=== PATIENT | female | born 1960 | race Caucasian/White ===

== ENCOUNTER 2016-11-10 13:05 | Emergency (ER) | payer OTHER ==
[~2016-11-10] VITALS: Ht 152.4 cm; Wt 82.9 kg
[~2016-11-10 13:05] MED LIST: AMLO-110 PO; IBUP200C11 PO; IRBE1TAB50 PO; PRT/20 PO
[2016-11-10 13:07] VITALS: PULSE 97; TEMP 36.7; O2SAT 94; Ht 152.4 cm; Wt 82.9 kg
[2016-11-10] MEDS ORDERED: LOSA100T65 PO (13:44)
[2016-11-10] MEDS ORDERED: HYDR25TA5 PO (13:44)
[2016-11-10] MEDS ORDERED: ZNTT/150 PO (13:52)
[2016-11-10] MEDS ORDERED: GLUCTAB18 PO (13:52)
[2016-11-10] MEDS ORDERED: ACET-1311 PO (13:52)
--- NOTE | 2016-11-10 14:23 | EMERGENCY ROOM VISIT NOTE ---
ED Visit Note First contact with patient: 13:22 CHIEF COMPLAINT: Scalp laceration HISTORY OF PRESENT ILLNESS: This 56-year-old female patient presents emergency department approximately 2 hours after striking the head with a hammer. The patient states she was working on her porch, and dropped a hammer from above onto the top of her head. There was no loss of consciousness, blurry vision, nausea, vomiting, or unusual behavior afterwards. The patient denies pain, and states it is 0/10. The patient denies neck pain. The bleeding has stopped, however the patient and her had difficulty getting the bleeding to stop. The patient did hold gauze and ice to help stop the bleeding. The patient's tetanus shot is up to date. REVIEW OF SYSTEMS: A 6 system review of systems was completed with positives and pertinent negatives listed in the HPI. ALLERGIES: Propoxyphene, iodine contrast MEDICATIONS: Amlodipine, losartan, hydrochlorothiazide, Osteo Bi-Flex, ranitidine PMH: Hypertension, GERD SOCIAL HISTORY: The patient lives locally with her family. She denies drug, tobacco use. The patient does report to occasional alcohol use. PHYSICAL EXAM: Vital Signs: Reviewed Nurse's notes, vital signs stable. GENERAL : 56-year-old female, in no acute distress, well-developed, well-nourished. NEURO: Patient was alert and oriented to person place and time. Sensory and motor functions grossly intact. No focal neurologic deficits. Normal sensation to light and sharp touch. EYES: PERRLA. EOMI. Fundoscopic exam without hemorrhages or papilledema. EARS: No hemotympanum. No norman sign or mastoid tenderness. SKIN: There is a 1.5 cm laceration on the dorsal, right aspect of the scalp whose edges gape apart with traction. There is minimal bleeding. The wound is clean and there are no deep structures present. NECK: Supple, cervical spine nontender to palpation. EMERGENCY DEPARTMENT COURSE: I examined the patient. Verbal consent was obtained to perform the procedure. Using sterile technique the wound was cleaned with Betadine. I did offer anesthesia with lidocaine, however, the patient refuses at this time. The area was sterilely draped. The wound was explored and there were no deep structures present. The laceration was repaired using 3 curtis with the wound edges being well approximated. The patient tolerated the procedure well. The bleeding stopped. The area was cleaned with sterile saline and dressed with bacitracin ointment. The patient was discharged home in good condition. DIFFERENTIAL DIAGNOSIS: Concussion, contusion, hematoma, skull fracture, intracranial hemorrhage, and others. DIAGNOSIS: Scalp laceration DISCHARGE INSTRUCTIONS: You have received 3 curtis on your scalp. These curtis are NOT dissolvable and WILL need to be removed by a health care provider in 10 days. You can return to the Emergency Department or contact your Primary Care Provider to have these curtis removed. Proper wound care is essential for adequate wound healing and infection prevention. You can shower and clean the wound with soap and water. Do scour over the wound, pat dry with a towel. Do not submerse the wound until the curtis have been removed. You can use an antibiotic ointment with a dressing over the wound for the next 3-4 days. After this time you may leave the wound dry and open to the air. If crust develops over the wound you can use a Q-tip to apply a 1:1 peroxide:water solution to clean the wound. Look for signs of infection of the wound including: increased pain, swelling, foul discharge, streaking, or increased temperature. If any of these are noticed you should return to the Emergency Department for further assessment and treatment. As with any laceration you may have received nerve damage to the surrounding tissues. This damage may or may not be permanent. For pain control, you can use the following fifk-uvp-kajllfg medicines (if >12 yo): - Regular strength (325mg/tab) Tylenol (acetaminophen) 2 tabs every 4-6 hours as needed. Do not exceed 9 tablets in a 24 hour period. Avoid taking more than 3 grams (3000 mg) of Tylenol per day. This includes any other sources of acetaminophen you may take on a regular basis. - Regular strength (200 mg/tab) Advil (ibuprofen) 1-2 tabs every 4-6 hours as needed. Do not exceed a dose of 3200 mg per day. Return to the emergency department if your symptoms worsen despite treatment course outlined above or if you experience worsening headache, dizziness, blurry vision, lightheadedness, confusion, altered mental status, loss of consciousness, or other concerning head injury symptoms. Please follow-up with your primary care provider in 2-3 days for recheck of today's condition. Current/Historical Medications Scheduled Acetaminophen (Tylenol), 325 MG PO DAILY Amlodipine (Norvasc), 5 MG PO QAM Glucosamine-Chondroitin (Osteo Bi-Flex Regular Str), 1 TAB PO DAILY Hydrochlorothiazide (Hydrochlorothiazide), 25 MG PO DAILY Losartan Potassium (Cozaar), 100 MG PO DAILY Ranitidine (Zantac), 150 MG PO DAILY Allergies Coded Allergies: Propoxyphene (Verified Allergy, Mild, 08/28/15) Iodinated Diagnostic Agents (Verified Allergy, Unknown, HIVES, 08/28/15) Vital Signs Date Time Temp Pulse Resp B/P (MAP) Pulse Ox O2 Delivery O2 Flow Rate FiO2 11/10/16 14:29 129/94 11/10/16 13:07 36.7 97 20 146/98 94 Room Air Departure Information Impression Primary Impression: Laceration of scalp Dispostion Home / Self-Care Condition GOOD Referrals No Doctor, Assigned (PCP) Patient Instructions ED Laceration Scalp Stitch Or Stap, Luxera Additional Instructions You have received 3 curtis on your scalp. These curtis are NOT dissolvable and WILL need to be removed by a health care provider in 10 days. You can return to the Emergency Department or contact your Primary Care Provider to have these curtis removed. Proper wound care is essential for adequate wound healing and infection prevention. You can shower and clean the wound with soap and water. Do scour over the wound, pat dry with a towel. Do not submerse the wound until the curtis have been removed. You can use an antibiotic ointment with a dressing over the wound for the next 3-4 days. After this time you may leave the wound dry and open to the air. If crust develops over the wound you can use a Q-tip to apply a 1:1 peroxide:water solution to clean the wound. Look for signs of infection of the wound including: increased pain, swelling, foul discharge, streaking, or increased temperature. If any of these are noticed you should return to the Emergency Department for further assessment and treatment. As with any laceration you may have received nerve damage to the surrounding tissues. This damage may or may not be permanent. For pain control, you can use the following ioxx-tns-fnumxvh medicines (if >12 yo): - Regular strength (325mg/tab) Tylenol (acetaminophen) 2 tabs every 4-6 hours as needed. Do not exceed 9 tablets in a 24 hour period. Avoid taking more than 3 grams (3000 mg) of Tylenol per day. This includes any other sources of acetaminophen you may take on a regular basis. - Regular strength (200 mg/tab) Advil (ibuprofen) 1-2 tabs every 4-6 hours as needed. Do not exceed a dose of 3200 mg per day. Return to the emergency department if your symptoms worsen despite treatment course outlined above or if you experience worsening headache, dizziness, blurry vision, lightheadedness, confusion, altered mental status, loss of consciousness, or other concerning head injury symptoms. Please follow-up with your primary care provider in 2-3 days for recheck of today's condition. Problem Qualifiers Primary Impression: Laceration of scalp Encounter type: initial encounter Qualified Codes: S01.01XA - Laceration without foreign body of scalp, initial encounter
[2016-11-10 14:29] VITALS: BP 129/94
== END 2016-11-10 14:30 | disposition home or self-care (01) ==
LOC: C.EDB 13:06 → C.EDD 14:30
DX: S01.01XA Laceration without foreign body of scalp, initial encounter (principal); W20.8XXA Other cause of strike by thrown, projected or falling object, initial encounter; Y92.018 Other place in single-family (private) house as the place of occurrence of the external cause; I10 Essential (primary) hypertension; K21.9 Gastro-esophageal reflux disease without esophagitis; Z79.899 Other long term (current) drug therapy

== ENCOUNTER 2016-11-12 11:21 | Emergency (ER) | payer OTHER ==
[~2016-11-12] VITALS: Ht 152.4 cm; Wt 82.5 kg
[~2016-11-12 11:21] MED LIST changes: +ACET-1311 PO; +GLUCTAB18 PO; +HYDR25TA5 PO; -IBUP200C11 PO; -IRBE1TAB50 PO; +LOSA100T65 PO; -PRT/20 PO; +ZNTT/150 PO
[2016-11-12 11:33] VITALS: BP 163/98; PULSE 97; TEMP 37.2; O2SAT 97; Ht 152.4 cm; Wt 82.5 kg
--- NOTE | 2016-11-13 12:10 | EMERGENCY ROOM VISIT NOTE ---
ED Visit Note First contact with patient: 11:40 Chief Complaint: Lightheadedness. History of Present Illness: Ms. Garcia is a 56-year-old white female who ambulates into the ED accompanied by her complaining of possible signs of head injury. Patient was seen in this emergency department 2 days ago when she reports she was moving a ladder and a hammer fell off the top of the ladder and onto her head. She did present at that time and had a laceration that required staple repair. At that time she was not having any signs of head injury and no CT was performed. Patient reports over the last 24 hours she reports she feels like she is "feeling foggy" and approximately one hour ago she was driving and developed 15- 20 seconds of lightheadedness. She told this to her and he brought her into the ED for further evaluation and care. Currently patient has no complaints and denies headache, dizziness, lightheadedness, visual changes, hearing changes, difficulty speaking, difficulty swallowing, difficulty ambulating/coordinating body movements, neck pain, back pain, chest pain, shortness of breath, abdominal pain, nausea, vomiting, extremity weakness/numbness/tingling. Review of Systems: As noted above in history of present illness. All body systems were reviewed and found to be negative as noted above. Past Medical History: Hypertension, unspecified ulcers, esophagitis, status post cholecystectomy and 3 sections. Current Medications: Norvasc, Cozaar, hydrochlorothiazide, Zantac, Tylenol, glucosamine. Allergies to Medications: Oxycodone, Darvocet, IV contrast. Social History: Patient is currently employed; she feels safe in her home environment; she denies tobacco use and admits to alcohol use. Physical Examination: Vital Signs: Date Time Temp Pulse Resp B/P (MAP) Pulse Ox O2 Delivery O2 Flow Rate FiO2 11/12/16 11:33 37.2 97 18 163/98 97 Room Air GENERAL: 56-year-old female in no acute distress, nontoxic-appearing, afebrile and hemodynamically stable. NEUROLOGICAL: Awake, alert and oriented to person, place and time. Answering questions appropriately and following commands. Normal gait. Good hand eye coordination. No focal motor or sensory deficits. Romberg test negative. Pronator drift test negative. Cranial nerves II through XII grossly intact. Able to spelling count backwards. Normal rapid alternating movements of the hands and fingers. Normal heel cerna test. Good short-term and long-term recall. Able to draw the face of a clock. SKIN: Warm, dry and pink. Scalp: Laceration is clean dry and intact without signs of infection. HEENT: Atraumatic and normocephalic. No: No bony deformity or crepitus. Mild tenderness in the area of her laceration. No raccoon's eyes or norman signs. No drainage from the ears or the nostril; no hemotympanum. PERRLA. EOMI without nystagmus. Funduscopic examination is unremarkable with a normal- appearing optic disc and no signs of increased intracranial pressure. ED Course: Patient is assessed as noted above. Patient's medications were reviewed. A lengthy conversation with the patient and her concerning the risks and benefits of CT. After our discussion the patient felt she did not need a CT at this time and the reports that he would observe her for any signs of head injury. Patient were educated about today's findings and instructed on her treatment plan; she verbalizes understanding and agreement with this plan. Clinical Impression: Closed head injury symptoms. Disposition: Patient discharged home in stable condition accompanied by her ; prior to departure she was reassessed and subjectively reported that she was pain and symptom-free. Plan: Patient was educated about signs of head injury and recommendations for rest and alcohol avoidance were given. Patient and were encouraged to return to the ED for signs of worsening head injury symptoms. Patient was encouraged to also follow-up with the local concussion clinic.
== END 2016-11-12 12:32 | disposition home or self-care (01) ==
LOC: C.EDB 11:22 → C.EDD 12:32
DX: S09.90XD Unspecified injury of head, subsequent encounter (principal); W20.8XXD Other cause of strike by thrown, projected or falling object, subsequent encounter; I10 Essential (primary) hypertension; Z90.49 Acquired absence of other specified parts of digestive tract; Z79.899 Other long term (current) drug therapy

== ENCOUNTER → 2016-12-26 | Outpatient (CLI) | payer OTHER | END | disposition home or self-care (01) | LOC: C.PAPS 16:25 | PROVIDERS: ATTEND Physician Assistant | DX: Z12.4 Encounter for screening for malignant neoplasm of cervix (principal) ==

== ENCOUNTER → 2017-04-10 | Outpatient (CLI) | payer OTHER ==
--- NOTE | 2017-04-11 12:57 | MAMMOGRAPHY REPORT ---
BILATERAL DIGITAL SCREENING MAMMOGRAM TOMOSYNTHESIS WITH CAD: 04/10/2017 CLINICAL HISTORY: Routine screening. Patient has no complaints. TECHNIQUE: Breast tomosynthesis in addition to standard 2D mammography was performed. Current study was also evaluated with a Computer Aided Detection (CAD) system. COMPARISON: Comparison is made to exams dated: 09/10/2013 mammogram - [facility], , 09/14/2007, and 09/04/2007. BREAST COMPOSITION: There are scattered areas of fibroglandular density in both breasts. FINDINGS: No suspicious masses, calcifications, or areas of architectural distortion are noted in ei ther breast. There has been no significant interval change compared to prior exams. IMPRESSION: ACR BI-RADS CATEGORY 1: NEGATIVE There is no mammographic evidence of malignancy. A 1 year screening mammogram is recommended. The pa tient will receive written notification of the results. Approximately 10% of breast cancers are not detected with mammography. A negative mammographic report should not delay biopsy if a clinically suggestive mass is present. Diamond Love M.D. ah/:04/10/2017 15:56:07 Technology Consultant: Sadie Jha, [facility] letter sent: Normal 1/2 BI-RADS Code: ACR BI-RADS Category 1: Negative
== END | disposition home or self-care (01) ==
LOC: C.MAMM 10:19
PROVIDERS: ATTEND Physician Assistant Medical
DX: Z12.31 Encounter for screening mammogram for malignant neoplasm of breast (principal)

== ENCOUNTER → 2017-09-17 | Outpatient (CLI) | payer OTHER ==
[~2017-09-17] MED LIST changes: -ACET-1311 PO; +DICL1GEL12; -LOSA100T65 PO; +PRT/20 PO; +TELM80TA PO; -ZNTT/150 PO; +ZYR10 PO
[2017-09-17 11:17] LABS: BASO % 0.3 %; BASO ABS # 0.02 K/uL (0-0.2); EOS % 1.9 %; EOS ABS # 0.11 K/uL (0-0.5); HEMATOCRIT 45.8 % (37-47); HEMOGLOBIN 15.9 g/dL (12.0-16.0); IG# 0.01 K/uL (0.00-0.02); LYMPH % 39.3 %; LYMPH ABS # 2.27 K/uL (1.2-3.4); MEAN CELL VOLUME 91.1 fL (80-100); MEAN CORPUSCULAR HEMOGLOBIN 31.6 pg (25-34); MEAN CORPUSCULAR HGB CONC 34.7 g/dl (32-36); MEAN PLATELET VOLUME 9.7 fL (7.4-10.4); MONO % 7.8 %; MONO ABS # 0.45 K/uL (0.11-0.59); NEUT % 50.5 %; NEUT ABS # 2.92 K/uL (1.4-6.5); PLATELET COUNT 252 K/uL (130-400); RED CELL DISTRIBUTION WIDTH CV 13.4 % (11.5-14.5); RED CELL DISTRIBUTION WIDTH SD 44.1 fL (36.4-46.3); WHITE BLOOD COUNT 5.78 K/uL (4.8-10.8)
[2017-09-17 11:48] LABS: ALBUMIN 3.7 gm/dl (3.4-5.0); ALKALINE PHOSPHATASE 104 U/L (45-117); ALT/SGPT 45 U/L (12-78); AST/SGOT 22 U/L (15-37); BLOOD UREA NITROGEN 14 mg/dl (7-18); CALCIUM 8.7 mg/dl (8.5-10.1); CARBON DIOXIDE 29 mmol/L (21-32); CHOLESTEROL 238 mg/dl (0-200); GLUCOSE 106 mg/dl (70-99); LDL CHOLESTEROL CALCULATED 161 mg/dl; POTASSIUM 3.5 mmol/L (3.5-5.1); SODIUM 137 mmol/L (136-145); TOTAL PROTEIN 7.5 gm/dl (6.4-8.2)
== END | disposition home or self-care (01) ==
LOC: C.LABBC 07:39
PROVIDERS: ATTEND Physician Assistant Medical
DX: I10 Essential (primary) hypertension (principal); E78.5 Hyperlipidemia, unspecified